=== PATIENT | female | born 1980 | race Hispanic/Latino ===

== ENCOUNTER → 2018-07-27 | Outpatient (CLI) | payer OTHER ==
--- NOTE | 2018-07-27 10:28 | Diagnostic Imaging Report ---
PROCEDURE:PELVIC ULTRASOUND COMPARISON:None. INDICATIONS:ANEMIA TECHNIQUE: Grayscale transverse and sagittal transabdominal images were obtained of the pelvis. FINDINGS: UTERUS: Measures 7.7 x 4.5 x 5.8 cm. No evidence of mass lesion. There is a 1 cm anechoic cyst consistent with Nabothian cyst in the cervix. ENDOMETRIUM: Measures 0.7 cm. RIGHT OVARY: Measures 1.4 x 1.5 x 1.7 cm. Unremarkable appearance with Doppler flow. LEFT OVARY: Measures 3.0 x 1.5 x 1.2 cm. Unremarkable appearance with Doppler flow. There is no free fluid within the pelvis. No adnexal masses. CONCLUSION: No acute sonographic abnormality. Incidental nabothian cyst. Dictated by: NETO POLO M.D. on 07/27/2018 at 10:38 Electronically approved by: NETO POLO M.D. on 07/27/2018 at 10:38
== END ==
LOC: US 08:48
PROVIDERS: ATTEND Family Medicine
DX: D64.9 Anemia, unspecified (principal)
CPT/HCPCS: 76856